=== PATIENT | female | born 1975 | race Caucasian/White ===

== ENCOUNTER 2017-11-28 23:06 | Emergency (ER) | payer OTHER ==
[~2017-11-28] VITALS: Ht 152.4 cm; Wt 47.5 kg
[~2017-11-28 23:06] MED LIST: IBUP-1051 PO; NO HOME MEDS; POLOS OP
[2017-11-28 23:21] VITALS: BP 156/97
[2017-11-29] MEDS ORDERED: IBUP-1984 PO (00:18)
[2017-11-29] MEDS ORDERED: ketorolac trometh inj. 60 MG/2 ML VIAL IM ONE (00:20)
== END 2017-11-29 00:47 | disposition home or self-care (01) ==
LOC: ER 23:06
DX: S93.492A Sprain of other ligament of left ankle, initial encounter (principal); Z79.899 Other long term (current) drug therapy; X58.XXXA Exposure to other specified factors, initial encounter; Y93.89 Activity, other specified; Y92.89 Other specified places as the place of occurrence of the external cause; Y99.8 Other external cause status
CPT/HCPCS: 73610; 96372; 99284; A6449; J1885

== ENCOUNTER 2019-02-28 11:04 | Emergency (ER) | payer MEDICAID ==
[~2019-02-28] VITALS: Ht 157.5 cm; Wt 52.0 kg
[2019-02-28 11:07] VITALS: BP 132/90
[2019-02-28] MEDS ORDERED: HYDR-3686 PO (15:17)
[2019-02-28] MEDS ORDERED: METH-360 PO (15:17)
== END 2019-02-28 11:57 | disposition left against medical advice (07) ==
LOC: ER 11:04
DX: M54.2 Cervicalgia (principal); Z53.21 Procedure and treatment not carried out due to patient leaving prior to being seen by health care provider

== ENCOUNTER 2019-02-28 12:53 | Emergency (ER) | payer SELFPAY ==
[~2019-02-28] VITALS: Ht 154.9 cm; Wt 51.9 kg
[2019-02-28 13:07] VITALS: BP 153/86
[2019-02-28] MEDS ORDERED: ketorolac tromethamine 15mg/ml inj. IM ONE (15:15)
[2019-02-28] MEDS ORDERED: orphenadrine citrate 60mg/2ml inj. IM ONE (15:15)
[2019-02-28] MEDS ORDERED: METH-360 PO (15:17)
[2019-02-28] MEDS ORDERED: HYDR-3686 PO (15:17)
== END 2019-02-28 15:45 | disposition home or self-care (01) ==
LOC: ER 12:53
DX: S16.1XXA Strain of muscle, fascia and tendon at neck level, initial encounter (principal); R07.81 Pleurodynia; F41.9 Anxiety disorder, unspecified; G89.29 Other chronic pain; Z79.2 Long term (current) use of antibiotics; Z79.899 Other long term (current) drug therapy; X58.XXXA Exposure to other specified factors, initial encounter; Y93.89 Activity, other specified; Y92.89 Other specified places as the place of occurrence of the external cause; Y99.8 Other external cause status
CPT/HCPCS: 96372; 99283; J1885; J2360

== ENCOUNTER → 2020-03-14 | Outpatient (CLI) | payer MEDICAID ==
[~2020-03-14] MED LIST changes: +METH-360 PO
== END | disposition home or self-care (01) ==
LOC: RAD 08:36
PROVIDERS: ATTEND Psychiatry & Neurology Neurology
DX: R41.89 Other symptoms and signs involving cognitive functions and awareness (principal)
CPT/HCPCS: 95816

== ENCOUNTER 2022-04-19 07:03 | Day surgery (SDC) | payer MEDICAID ==
[~2022-04-19] VITALS: Ht 152.4 cm; Wt 51.1 kg
[2022-04-19 07:21] VITALS: BP 125/87
[2022-04-19] MEDS ORDERED: AMIT25TA9 PO (07:30)
[2022-04-19] MEDS ORDERED: CARV3.122 PO (07:30)
[2022-04-19] MEDS ORDERED: CYCL5TAB PO (07:30)
[2022-04-19] MEDS ORDERED: LOSA50TA64 PO (07:30)
[2022-04-19] MEDS ORDERED: MAGN400T52 PO (07:30)
[2022-04-19] MEDS ORDERED: LIDOcaine 1% 30ml preserv. free vial SQ STA (08:04)
[2022-04-19 08:45] VITALS: BP 124/72
[2022-04-19 09:04] VITALS: BP 112/74
== END 2022-04-19 09:25 | disposition home or self-care (01) ==
LOC: SSTAY O 07:03
PROVIDERS: ATTEND Radiology Vascular & Interventional Radiology
DX: R59.1 Generalized enlarged lymph nodes (principal); F17.210 Nicotine dependence, cigarettes, uncomplicated; Z79.899 Other long term (current) drug therapy; Z98.890 Other specified postprocedural states
CPT/HCPCS: 10005; 38505; 76942

== ENCOUNTER 2023-01-11 12:10 | Emergency (ER) | payer MEDICAID ==
[~2023-01-11] VITALS: Ht 154.9 cm; Wt 50.0 kg
[~2023-01-11 12:10] MED LIST changes: +AMIT25TA9 PO; +CARV3.122 PO; +CYCL5TAB PO; +LOSA50TA64 PO; +MAGN400T52 PO; -METH-360 PO; -NO HOME MEDS; -POLOS OP
[2023-01-11 12:14] VITALS: BP 140/82; PULSE 92; RESP 18; TEMP 97.8; O2SAT 99
--- NOTE | 2023-01-11 16:19 | NUR ---
PA DOES NOT KNOW HOW TO WRITE OUT D/C INSTRUCTIONS. PT LEFT ER WITHOUT ANY PAPERWORK.
== END 2023-01-11 16:20 | disposition home or self-care (01) ==
LOC: ER 12:11
DX: S00.03XA Contusion of scalp, initial encounter (principal); S09.90XA Unspecified injury of head, initial encounter; G89.29 Other chronic pain; Z90.49 Acquired absence of other specified parts of digestive tract; Z98.891 History of uterine scar from previous surgery; Z98.84 Bariatric surgery status; Z98.51 Tubal ligation status; W22.8XXA Striking against or struck by other objects, initial encounter; Y93.89 Activity, other specified; Y92.89 Other specified places as the place of occurrence of the external cause; Y99.8 Other external cause status
CPT/HCPCS: 99281

== ENCOUNTER 2025-04-28 11:53 | Emergency (ER) | payer MEDICAID ==
[~2025-04-28] VITALS: Ht 154.9 cm; Wt 59.1 kg
[~2025-04-28 11:53] MED LIST changes: +AMIT25TA22 PO; -AMIT25TA9 PO; +CYCL-920 PO; -CYCL5TAB PO
[2025-04-28 11:59] VITALS: TEMP 98.4
--- NOTE | 2025-04-28 12:26 | RADIOLOGY REPORT ---
CLINICAL INFORMATION: Hand pain. TECHNIQUE: 3 views of the left hand were obtained. COMPARISON: None FINDINGS: No acute fracture or dislocation. No significant arthropathy. Moderate soft tissue swelling at the dorsal aspect of the metacarpals. IMPRESSION: 1. No evidence of acute bony abnormality. 2. Moderate dorsal soft tissue swelling.
--- NOTE | 2025-04-28 12:39 | Physician Documentation ---
History of Present Illness ~ Chief Complaint: Hand pain Stated Complaint: HAND SWOLLEN Time Seen by MD: 12:52 Primary Medical Doctor: [facility] HPI 49-year-old female presents to the emergency department reporting that she injured her left hand at work. Does not desire to file a workers' compensation for this issue. She hit her hand on a hard object. Is concerned that she had fractured it. Denies other concerns or injuries. Tetanus within 5 years: Yes Medication Reconciliation Allergies: Coded Allergies: No Known Allergies (Unverified , 04/28/25) Scheduled Amitriptyline Hcl (Amitriptyline Hcl), 2 TAB PO HS, (Reported) Carvedilol (Carvedilol), 1 TAB PO BID, (Reported) Ibuprofen* (Motrin*), 800 MG PO TID Losartan Potassium (Losartan Potassium), 1 TAB PO DAILY, (Reported) Magnesium Oxide (Magnesium Oxide), 2 TAB PO DAILY, (Reported) Scheduled PRN Cyclobenzaprine HCl (Cyclobenzaprine HCl), 1 TAB PO TID PRN for neck pain, (Reported) Past Medical History Past Medical History: Chronic Pain Past Surgical History: no surgical history Alcohol Use: Occasionally Drug Use: none Lives with: Family Lives In: Home Review of Systems ROS As stated above in the HPI, otherwise all systems are reviewed and negative. Physical Exam Vital Signs: Temperature: 98.4, Source: Temporal, Heart Rate: 84, Respiratory Rate: 18, BP: 139/83, Pulse Oximetry: 99, Weight: 59.100 Oxygen Flow Rate: 0 Physical Exam General: Alert, no apparent distress. HEENT: PERRL, EOMI, no injection, moist mucous membranes. Neck: Full range of motion. Respiratory: Lungs clear, no respiratory distress. Chest: No accessory muscle use. Cardiovascular: Regular rate and rhythm, no murmurs. Gastrointestinal: Soft, nontender, nondistended. Bowels sounds present. Extremities: Reduced and painful range of motion to the left hand with swelling noted to the lateral hand, dorsal aspect. CMS intact to fingers. Strong radial pulse. Neurologic: Oriented x4. Psychiatric: Normal mood and affect. Skin: Normal color, warm and dry. No edema, no ecchymosis. Progress Results/Orders Results/Orders Vital Signs 04/28/25 11:59 Temp 98.4 Pulse 84 Resp 18 B/P (MAP) 139/83 Pulse Ox 99 O2 Flow Rate 0 EKG/XRAY/CT/US/VASC/MRI Bone/Soft Tissue X-Ray (Spine) : Additional Comment [address], [facility] [id number] DIAGNOSTIC RADIOLOGY Patient: TUNG GUERRA Medical Record: [id number] [facility] : 1975, Age: 49 Sex: Female Location: ER Patient Status: [facility] ER Service Date/Time: 04/28/25/ 3 Ordering Physician: PRABHA BORJAS MD Exam: HAND, COMPLETE (3VW MIN) CLINICAL INFORMATION: Hand pain. TECHNIQUE: 3 views of the left hand were obtained. COMPARISON: None FINDINGS: No acute fracture or dislocation. No significant arthropathy. Moderate soft tissue swelling at the dorsal aspect of the metacarpals. IMPRESSION: 1. No evidence of acute bony abnormality. 2. Moderate dorsal soft tissue swelling. Electronically Signed by:JARAD SUERO DO Date & Time: 04/28/25 1224 Dictated by: JARAD SUERO DO Dictation date and time: 04/28/25 1210 Primary Care Provider: NO PRIMARY CARE PROVIDER cc: PRABHA BORJAS MD ~ Medical Decision Making Additional information obtaine: old records Findings Gastritis 03/12/25 was last visit here. General Diff Dx:Considerations: Include: Abrasion, Contusion, Fracture, Hematoma, Laceration, Malunion, Neurovascular injury, Open fracture, Sprain, Ulcer Shoulder Diff Dx:Consideration: Include: Other Elbow Diff Dx:Considerations: Include: Other Wrist Diff Dx:Considerations: Include: Other Hand Diff Dx:Considerations: Include: Other Finger Diff Dx:Considerations: Include: Other Departure Time of Disposition: 12:52 Disposition: 01 HOME / SELF CARE / HOMELESS Impression: Primary Impression: Hand pain Qualified Codes: M79.642 - Pain in left hand Condition: Stable Discharge Instructions: Contusion (Bruise) Additional Instructions: No fracture/dislocation. Use the provided brace to protect the hand. Take ibuprofen per [id number] and labeled instructions for the next several days. Ice the hand. Rest. Departure Forms: Excuse form Work or School Excused From: Work Excuse beginning now through the following date: May 01, 2025 Referrals: NO PRIMARY CARE PROVIDER (PCP) Education Educated: Patient Educated regarding: diagnosis, treatment, prognosis, need for follow up Signature Scribe Signature: x Attestation: The note accurately reflects work and decisions made by me.Gabriela Leung NP 04/28/25 13:16 GABRIELA GUZMAN NP Apr 28, 2025 12:39
[2025-04-28 13:14] VITALS: BP 125/89; PULSE 79; RESP 16; O2SAT 100
== END 2025-04-28 13:19 | disposition home or self-care (01) ==
LOC: ER 11:53
DX: M79.642 Pain in left hand (principal)
CPT/HCPCS: 73130; 99283

== ENCOUNTER 2025-05-10 08:57 | Emergency (ER) | payer MEDICAID ==
[~2025-05-10] VITALS: Ht 154.9 cm; Wt 59.1 kg
--- NOTE | 2025-05-10 10:39 | RADIOLOGY REPORT ---
EXAM: CT CT HEAD INDICATION: dizziness, headache, off balance TECHNIQUE: CT of the head without intravenous contrast. Radiation Dose : 1. Head: CT Dose: CTDI volume is 47 mGy. Dose-length product is 743 mGy*cm The dose indicators for CT are the volume Computed Tomography (CT) Dose Index (CTDIvol) and the Dose Length Product (DLP), and are measured in units of mGy and mGy-cm, respectively. These indicators are not patient dose, but values generated from the CT scanner acquisition factors. The report includes radiation exposure data for exposures received during this examination. COMPARISON: None FINDINGS: There is no evidence of acute intracranial hemorrhage, extra-axial collection, mass effect, midline shift, herniation or hydrocephalus. The ventricles, sulci and cisterns are age appropriate. The back-white differentiation is intact. Patchy periventricular and subcortical white matter hypoattenuation is nonspecific but may be related to small vessel ischemic disease. The visualized paranasal sinuses and mastoid air cells are clear. The surrounding soft tissues and osseous structures are unremarkable. IMPRESSION: 1. No acute intracranial abnormality. Radiation optimization: All CT scans at this facility use at least one of these dose optimization techniques: automated exposure control mA and/or kV adjustment per patient size (includes targeted exams where dose is matched to clinical indication) or iterative reconstruction.
[2025-05-10 11:05] LABS: MEAN PLATELET VOLUME 7.8 FL (7.4-10.4); RED CELL DISTRIBUTION WIDTH 12.4 % (11.5-14.5)
[2025-05-10 11:11] LABS: URINE HCG NEGATIVE (NEG)
[2025-05-10 11:18] LABS: CREATININE 0.91 MG/DL (0.40-0.90); TOTAL CARBON DIOXIDE 32.6 MMOL/L (24-32); eCRCL 55 ML/MIN; eGFR 65 ML/MIN
[2025-05-10] MEDS ORDERED: MECL-231 PO (18:24)
--- NOTE | 2025-05-10 18:24 | Physician Documentation ---
History of Present Illness ~ Chief Complaint: Dizziness Stated Complaint: HEADACHE Time Seen by MD: 10:50 Primary Medical Doctor: Tanisha Landin. Mode of Arrival: EMS Medication Reconciliation Allergies: Coded Allergies: No Known Allergies (Unverified , 04/28/25) Scheduled Amitriptyline Hcl (Amitriptyline Hcl), 2 TAB PO HS, (Reported) Carvedilol (Carvedilol), 1 TAB PO BID, (Reported) Ibuprofen* (Motrin*), 800 MG PO TID Losartan Potassium (Losartan Potassium), 1 TAB PO DAILY, (Reported) Magnesium Oxide (Magnesium Oxide), 2 TAB PO DAILY, (Reported) Meclizine Hcl (Meclizine Hcl), 2 TAB PO Every 12 hours Scheduled PRN Cyclobenzaprine HCl (Cyclobenzaprine HCl), 1 TAB PO TID PRN for neck pain, (Reported) Past Medical History Past Medical History: Chronic Pain Past Surgical History: no surgical history Smoking Status: Never smoker Alcohol Use: Occasionally Drug Use: none Lives with: Family Lives In: Home Review of Systems All Other Systems at this time: Reviewed and Negative ROS Constitutional: Negative for fever and chills. HENT: Negative for sore throat and rhinorrhea. Eyes: Negative for pain and redness. Respiratory: Negative for cough and SOB. Cardiovascular: Negative for chest pain and palpitations. Gastrointestinal: Negative for nausea and vomiting. . Genitourinary: Negative for dysuria and hematuria. Musculoskeletal: Negative for acute back pain and acute neck pain. Skin: Negative for rash and pruritus. Neurological: Positive for headache. Negative for acute numbness or weakness. Physical Exam Vital Signs: Temperature: 98.1, Source: Oral, Heart Rate: 61, Respiratory Rate: 14, BP: 135/82, Pulse Oximetry: 100, Weight: 59.090 Oxygen Flow Rate: 0 Physical Exam General: Awake [] distress. Verbal Head: No trauma Eyes: Nl lids Nl conjunctiva. No eye discharge ENT: Mucous membranes Nl. Lips Nl. No lesions Neck: Supple. No JVD. No visible mass Resp: Rate normal. No respiratory distress. No retractions. Normal air flow. No wheezes, rhonchi, or rales. Heart: Regular rhythm. No murmur. No rub Abdomen: Soft. Nontender. No guarding. No rebound Musc/skeletal: No calf or popliteal tenderness. No edema Skin: No rash. No petechiae. Not diaphoretic Neuro: Alert, oriented. Normal speech Progress Results/Orders Results/Orders Completed Orders - JUAN LACKEY MD Acetaminophen 325mg Tablet (Tylenol Tabl (05/10/25 11:40) Meclizine Tablets (Antivert Tablet) (05/10/25 15:15) Diazepam Tablet (Valium Tablet) (05/10/25 15:15) Vital Signs 05/10/25 05/10/25 05/10/25 05/10/25 09:06 11:23 11:24 14:30 Temp 98.1 Pulse 62 58 57 Resp 16 16 14 14 B/P (MAP) 167/94 143/87 (105) 127/76 (93) Pulse Ox 100 99 98 O2 Flow Rate 0 0 0 05/10/25 05/10/25 05/10/25 05/10/25 14:30 15:30 16:30 16:39 Pulse 55 57 61 Resp 13 13 16 14 B/P (MAP) 126/78 (94) 131/81 (98) 135/82 (99) Pulse Ox 98 97 100 O2 Flow Rate 0 0 0 05/10/25 18:34 Temp 98.1 Pulse 58 Resp 16 B/P (MAP) 135/82 Pulse Ox 99 Laboratory Tests Test 05/10/25 09:25 05/10/25 10:31 Urine HCG, Qualitative Negative White Blood Count 4.0 L Red Blood Count 3.97 L Hemoglobin 12.7 Hematocrit 37.0 Mean Corpuscular Volume 93.1 Mean Corpuscular Hemoglobin 31.9 H Mean Corpuscular Hemoglobin Concent 34.3 Red Cell Distribution Width 12.4 Platelet Count 305 Mean Platelet Volume 7.8 Neutrophils (%) (Auto) 64.7 Lymphocytes (%) (Auto) 23.7 Monocytes (%) (Auto) 8.2 Eosinophils (%) (Auto) 2.8 Basophils (%) (Auto) 0.6 Neutrophils # (Auto) 2.6 Lymphocytes # (Auto) 1.0 L Monocytes # (Auto) 0.3 Eosinophils # (Auto) 0.1 Basophils # (Auto) 0.0 CBC Comment Sodium Level 145 Potassium Level 4.6 Chloride Level 111 H Carbon Dioxide Level 32.6 H Anion Gap 1 L Blood Urea Nitrogen 13 Creatinine 0.91 H Estimated GFR/1.73 m2 65 BUN/Creatinine Ratio 14.3 Glucose Level 86 Calcium Level 8.8 Albumin 3.6 Chemistry Comments EKG/XRAY/CT/US/VASC/MRI CT : Interpreted By: radiologist CT: head Impression EXAM: CT CT HEAD INDICATION: dizziness, headache, off balance TECHNIQUE: CT of the head without intravenous contrast. Radiation Dose : 1. Head: CT Dose: CTDI volume is 47 mGy. Dose-length product is 743 mGy*cm The dose indicators for CT are the volume Computed Tomography (CT) Dose Index (CTDIvol) and the Dose Length Product (DLP), and are measured in units of mGy and mGy-cm, respectively. These indicators are not patient dose, but values generated from the CT scanner acquisition factors. The report includes radiation exposure data for exposures received during this examination. COMPARISON: None FINDINGS: There is no evidence of acute intracranial hemorrhage, extra-axial collection, mass effect, midline shift, herniation or hydrocephalus. The ventricles, sulci and cisterns are age appropriate. The back-white differentiation is intact. Patchy periventricular and subcortical white matter hypoattenuation is nonspecific but may be related to small vessel ischemic disease. The visualized paranasal sinuses and mastoid air cells are clear. The surrounding soft tissues and osseous structures are unremarkable. IMPRESSION: 1. No acute intracranial abnormality. Radiation optimization: All CT scans at this facility use at least one of these dose optimization techniques: automated exposure control mA and/or kV adjustment per patient size (includes targeted exams where dose is matched to clinical indication) or iterative reconstruction. Medical Decision Making Additional information obtaine: N/A Findings MDM: Limited: (2 points from category 1 or one discussion with independent historian). Moderate: one of the following (3 points from category 1, or independent interpretations of tests performed by another physician/QHP: (ct,ecg,rad doris,rhythm strip,or comparing xray to prior), or discussion of tests or management with other professionals (not including [facility] ER doc/PA or family members.) High: (2 of 3 from : category 1 (3 points), independent interpretation of tests performed by another physician/QHP, and discussion of tests or management). Prior ER notes reviewed: Category 1: Number of Tests ordered or reviewed: [] Number of Independent Historians: [] Non [facility] ER notes reviewed: 1. 2. 3. Category 2: I independently interpreted the: [] Category 3: Discussion with other professionals: [] SOCIAL [employer]ERMINANTS OF HEALTH Problems related to: ( )Challenges with access to Primary Care or Outpatient Speciality Care ( )Psychosocial circumstances such as mental health issues ( )Social environment: such as violence or substance abuse ( )Housing and economic circumstances: such as homelessness ( )Employment and unemployment: such as recently loss of employment ( )Occupational exposures or injuries: ( )Accessing ED outside of normal PCP hours ( )Language barrier: ( )Primary support group, including family circumstances: Prescription Management: Rx strength meds given in ED: [] New Prescriptions: [] ( )I have reviewed the patient's medications and I do not recommend any changes at this time. (Applies only if checked) Comorbid conditions include but are not limited to: [] Testing or interventions considered: [] Differential includes but is not limited to: [] Differential Dx:Considerations: Include: other Additional Information See MDM Departure Disposition: 01 HOME / SELF CARE / HOMELESS Condition: Stable Referrals: NO PRIMARY CARE PROVIDER (PCP) Prescriptions Meclizine Hcl (MECLIZINE HCL) 12.5 Mg Tablet 2 TAB PO Every 12 hours for dizziness for 10 Days, #60 TAB 0 Refills Prov: JUAN LACKEY MD 05/10/25 Education Educated: Patient Educated regarding: diagnosis, treatment, prognosis, need for follow up Signature Scribe Signature: No scribe Attestation: Scribed for Juan Lackey MD by Juan Lackey . 05/12/25 0234 JUAN LACKEY MD May 10, 2025 18:24
[2025-05-10 18:34] VITALS: BP 135/82; PULSE 58; RESP 16; TEMP 98.1; O2SAT 99
== END 2025-05-10 18:37 | disposition home or self-care (01) ==
LOC: ER 08:57
DX: R42 Dizziness and giddiness (principal); G89.29 Other chronic pain; Z59.00 Homelessness unspecified; Z56.0 Unemployment, unspecified; Z79.899 Other long term (current) drug therapy; Z72.89 Other problems related to lifestyle
CPT/HCPCS: 36415; 70450; 80048; 81025; 85025; 99285; J8597